=== PATIENT | female | born 1995 | race Caucasian/White ===

== ENCOUNTER 2023-11-14 13:44 | Emergency (ER) | payer OTHER, SELFPAY ==
[2023-11-14 13:45] VITALS: BP 144/86
--- NOTE | 2023-11-14 13:59 | ED.GENMED ---
History of Present Illness
General
Chief Complaint: Problems
Time Seen by Provider: 11/14/23 13:59
History of Present Illness
History of Present Illness:
TIME OF INITIAL ENCOUNTER: 2 PM
HPI: The patient just found out she was and has been having some cramping and light spotting. FDLMP was 10/08/23 but did have some vaginal bleeding about 8 days later. [facility] her here for further
evaluation. She has some lower abdominal discomfort slightly more on the left side. She states her first appointment with [facility] is in December.
EXAM:
GENERAL: Well appearing in no distress
HEENT: Moist oral mucosa
CARDIOVASCULAR: No murmurs, normal heart rate, regular rhythm, No chest wall tenderness
PULMONARY: No respiratory distress, breath sounds are clear and equal
ABDOMEN: Soft with no peritoneal signs, minimal if any left greater than right lower tenderness
NEUROLOGIC: Excellent strength all extremities, no coordination deficits
PSYCHIATRIC: Appropriate mental status, normal insight and judgement
EXTREMITIES: Nontender, no edema, moves all extremities equally
SKIN: No rash, no lesions
NUMBER AND COMPLEXITY OF PROBLEMS ADDRESSED AT THE ENCOUNTER
� Chronic conditions affecting care: No significant past medical history however she states she has had abortions in the past
� Acute Exacerbation and/or Progression of Chronic Illness: This is an acute problem
� Differential Diagnosis includes: Early , ectopic , miscarriage
AMOUNT AND/OR COMPLEXITY OF DATA TO BE REVIEWED AND ANALYZED
� I performed an independent evaluation of and my interpretation is:
EKG:
CT:
X-rays:
Laboratory Studies: hCG quant 153, hemoglobin and white count normal
Other: Ultrasound imaging reviewed�questionable gestational sac/ pole in the uterus
� Review of other/old records: I reviewed records, the patient has had adenotonsillectomy in 2016
� Clinical information was obtained by an independent historian: None needed
� Prescriptions/Medications Considered but not given:
� Further testing considered but not performed:
RISK OF COMPLICATIONS AND/OR MORBIDITY OR MORTALITY OF PATIENT MANAGEMENT
� Social determinants of health affecting care: Lives at home
� Discussion with other providers: Discussed case with Dr. Mccartney with close outpatient follow-up
� Escalation of care including admission/observation vs risk of discharge considered: No indication for admission to the hospital at this time however the patient will require close outpatient follow-up
ANY OTHER UPDATES:
Past History
Past History
ED Past Medical History: None
ED Past Surgical History: Tonsilectomy (10/25/2015)
Social History
Tobacco: Non-smoker
Personal: Single
Living: with family
Employment: Student
Family History
Family History: Diabetes and Hypertension
Phy Exam
Physical Exam
Physical Exam:
See HPI
Course
Orders/Labs/Results
Orders:
Orders
11/14/23 13:56
Type+Screen Urgent
Complete Blood Count/With Diff Urgent
Comprehensive Metabolic Panel Urgent
HCG, Beta Quantitative [Beta HCG Quantitative] Urgent
Is this a screen?: No
Urinalysis Reflex To Culture Urgent
Date Specimen was Collected: 11/14/23
Time Specimen was Collected: 13:49
Urine Microscopic Reflex Cult Urgent
11/14/23 14:00
US W Transvaginal Urgent
Reason For Exam: early bleeding
11/14/23 16:14
ABO2 Urgent
BBK Wristband Number:
Associate notified that ABO2 has been ordered: [id number]
Date: 11/14/23
Time: 14:09
Pacu Nurse ID: [id number]
Abnormal Lab Results
11/14/23
13:56
RDW 11.2 L %
(11.5-14.5)
Absolute Monos (auto) 0.8 H 10^3/uL
(0.1-0.6)
Urine Ketones Trace A
(Negative)
Ur Occult Blood Reflex 2+ A
(Negative)
Urine RBC 3-6 A /HPF
(0-2)
11/14/23 13:56
11/14/23 13:56
Vital Signs
Initial and Last Documented VS:
Initial Vital Signs
Temp Pulse Resp BP Pulse Ox
98.0 F 74 16 144/86 98
11/14/23 13:45 11/14/23 13:45 11/14/23 13:45 11/14/23 13:45 11/14/23 13:45
Last Documented Vital Signs
Temp Pulse Resp BP Pulse Ox
98.0 F 77 16 120/77 98
11/14/23 13:45 11/14/23 16:20 11/14/23 16:20 11/14/23 16:20 11/14/23 16:20
Information
Weeks gestation: Weeks:
Location: Location:
*Critical Care Note
Total Time (30-74mins, 75-104mins- exclusive of procedures): Not Applicable
ED Attending Note
-
Portions of this chart may have been created with voice recognition software.� Occasional wrong word or��sound alike� substitutions may have occurred due to the inherent limitations of voice recognition software.
Discharge Plan
Departure
Patient Disposition: Home (Routine Discharge)
Date of Disposition: 11/14/23
Time of Disposition: 16:59
Patient with high blood pressure during this ER visit?: Yes
Discharge Problem:
Bleeding in early
Instructions: Bleeding in Early (DC)
Referrals:
Janet Whelan DO [Active] - Tomorrow
Romana Arzola PA [Family Provider] -
Activity Restrictions/Additional Instructions:
The ultrasound suggest a small gestational sac in the uterus with an ill-defined fetus. hCG level is only 153. It is very important that you have repeat testing to further determine what is going on. I notified Dr. Whelan, with [facility],
call their office tomorrow mony 'they will likely set up hCG quant for Sunday and see what it does'. Dr. Whelan also had indicated that she will pass on your information to the triage nurse tomorrow morning as well. Your blood type is A+.
Interventions
Interventions:
*Risk Screen - Suicide Last Done: 11/14/23 13:45
*General Assessment Last Done: 11/14/23 15:06
*Neglect/Abuse Screening Last Done: 11/14/23 13:45
*ED COVID-19 Vaccine History Last Done: 11/14/23 15:06
*Nursing Disposition Last Done: 11/14/23 17:01
ED-Female Genitourinary Assessment Last Done: 11/14/23 15:06
Discharge Date and Time
Discharge Date/Time: 11/14/23 17:15
Print Language: KINYARWANDA
[2023-11-14 14:08] LABS: % Basophils 0.5 % (0-2); % Eosinophils 0.9 % (0-6); % Immature Granulocytes 0.3 % (0-0.5); % Lymphocytes 26.9 % (20.5-51.1); % Monocytes 8.5 % (1.7-9.3); % Neutrophils 62.9 % (42.2-75.2); Absolute Basophils 0.1 10^3/uL (0-0.2); Absolute Eosinophils 0.1 10^3/uL (0-0.7); Absolute Lymphocytes 2.7 10^3/uL (1.2-3.4); Absolute Monocytes 0.8 10^3/uL (0.1-0.6); Absolute Neutrophils 6.2 10^3/uL (1.4-6.5); Hematocrit 39.7 % (37.0-47.0); Hemoglobin 13.7 g/dL (12.0-16.0); Mean Corp Hgb Conc. 34.5 g/dL (33.0-37.0); Mean Corpuscular Hgb 30.3 pg (27.0-31.0); Mean Corpuscular Volume 87.8 fL (81.0-99.0); Mean Platelet Volume 9.6 fL (7.4-10.4); Nucleated Red Blood Cells % 0 %; Platelet Count 275 10^3/uL (130-400); Red Blood Cell Count 4.52 10^6/uL (4.20-5.40); Red Cell Dist. Width 11.2 % (11.5-14.5); Urine Albumin Negative (Neg - Trace); Urine Bilirubin Negative (Negative); Urine Character Clear (Clear); Urine Color Yellow; Urine Glucose Negative (Negative); Urine Ketone Trace (Negative); Urine Leukocyte Negative (Negative); Urine Nitrite Negative (Negative); Urine Occult Blood 2+ (Negative); Urine Urobilinogen Negative (Neg - 1+); White Blood Cell Count 9.9 10^3/uL (4.8-10.8)
[2023-11-14 14:23] LABS: ALT (SGPT) 17 U/L (0-35); AST (SGOT) 22 U/L (14-36); Albumin 4.7 g/dl (3.5-5.0); Alkaline Phosphatase 50 U/L (38-126); Blood Urea Nitrogen 17 mg/dl (7-17); Calcium 9.5 mg/dl (8.4-10.2); Carbon Dioxide 24 mmol/L (22-30); Chloride 101 mmol/L (98-107); Glucose 87 mg/dl (70-99); Sodium 138 mmol/L (135-145); Total Bilirubin 0.3 mg/dl (0.2-1.3); Total Protein 7.2 g/dl (6.3-8.2); eGFR > 60.00
[2023-11-14 14:39] LABS: Beta HCG Quantitative 153.34 mIU/ml
[2023-11-14 14:47] LABS: Urine Squamous Cell >30 /LPF (Few)
[2023-11-14 14:48] LABS: Urine Amorphous Seen; Urine White Cell 0-2 /HPF (0-5)
[2023-11-14 16:20] VITALS: BP 120/77
== END 2023-11-14 17:15 | disposition home or self-care (01) ==
LOC: EMR 13:44
PROVIDERS: Emergency Medicine; EMERGENCY PHYSICIAN Emergency Medicine; FAMILY PHYSICIAN Family Medicine
DX: O20.9 Hemorrhage in early pregnancy, unspecified (principal); R10.9 Unspecified abdominal pain; R03.0 Elevated blood-pressure reading, without diagnosis of hypertension; Z88.1 Allergy status to other antibiotic agents; Z91.040 Latex allergy status
CPT/HCPCS: 99284; 76801; 76817; 80053; 81003; 81015; 84702; 85025; 86850; 86900; 86901

== ENCOUNTER → 2023-11-16 14:26 | Outpatient (REF) | payer OTHER, SELFPAY ==
[2023-11-16 16:27] LABS: Beta HCG Quantitative 493.69 mIU/ml
== END ==
LOC: REG 14:26
PROVIDERS: ATTENDING PHYSICIAN Obstetrics & Gynecology; FAMILY PHYSICIAN Family Medicine
DX: Z34.90 Encounter for supervision of normal pregnancy, unspecified, unspecified trimester (principal)
CPT/HCPCS: 36415; 84702

== ENCOUNTER → 2024-01-14 14:43 | Outpatient (REF) | payer OTHER, SELFPAY | LOC: PNTC 14:43 | PROVIDERS: ATTENDING PHYSICIAN Obstetrics & Gynecology | DX: Z36.0 Encounter for antenatal screening for chromosomal anomalies (principal); Z36.82 Encounter for antenatal screening for nuchal translucency | CPT/HCPCS: 36415; 76801; 76813 ==

== ENCOUNTER → 2024-03-10 15:47 | Outpatient (REF) | payer OTHER, SELFPAY | LOC: PNTC 15:47 | PROVIDERS: ATTENDING PHYSICIAN Obstetrics & Gynecology | DX: Z36.0 Encounter for antenatal screening for chromosomal anomalies (principal) | CPT/HCPCS: 76805 ==

== ENCOUNTER 2024-07-21 14:15 | Inpatient (IN) | payer OTHER, SELFPAY ==
[2024-07-21 14:40] VITALS: BP 123/73; BMI 36.1
[2024-07-21] MEDS: LR 1000 IV ×2 (15:15→15:45)
[2024-07-21] MEDS: FENTANYL/BUPIVACAINE 100 EPIDURAL (15:34)
[2024-07-21] MEDS: SUBLIMAZE 100 MCG EPIDURAL (15:34)
[2024-07-21 16:41] LABS: Hematocrit 32.7 % (37.0-47.0); Hemoglobin 10.9 g/dL (12.0-16.0); Mean Corp Hgb Conc. 33.3 g/dL (33.0-37.0); Mean Corpuscular Hgb 28.5 pg (27.0-31.0); Mean Corpuscular Volume 85.6 fL (81.0-99.0); Mean Platelet Volume 10.2 fL (7.4-10.4); Platelet Count 242 10^3/uL (130-400); Red Blood Cell Count 3.82 10^6/uL (4.20-5.40); Red Cell Dist. Width 13.3 % (11.5-14.5); White Blood Cell Count 20.7 10^3/uL (4.8-10.8)
[2024-07-21 17:21] LABS: Segmented Neutrophils 86 % (42-75)
[2024-07-21 17:27] LABS: Band Neutrophils 1 % (0-3); Eosinophils 1 % (0-6); Lymphocytes 7 % (20-51); Monocytes 5 % (2-9); Myelocytes 1 % (-); Platelets Checked Yes
[2024-07-21 17:28] LABS: Anisocytosis Slight; Normal RBC Morphology No
[2024-07-21 17:30] LABS: Hypochromasia 1+; Total Cells Counted 100
[2024-07-21] MEDS: PITOCIN 30 UNITS/NSS 500 ML IV ×2 (19:30→20:13)
[2024-07-21 20:06] LABS: % Basophils 0.2 % (0-2); % Immature Granulocytes 0.6 % (0-0.5); % Lymphocytes 4.4 % (20.5-51.1); % Monocytes 5.2 % (1.7-9.3); % Neutrophils 89.6 % (42.2-75.2); Absolute Immature Granulocytes 0.1 10^3/uL (0-0.05); Absolute Lymphocytes 0.9 10^3/uL (1.2-3.4); Absolute Monocytes 1.1 10^3/uL (0.1-0.6); Absolute Neutrophils 18.7 10^3/uL (1.4-6.5); Hemoglobin 10.8 g/dL (12.0-16.0); Mean Corp Hgb Conc. 33.8 g/dL (33.0-37.0); Mean Corpuscular Hgb 28.7 pg (27.0-31.0); Mean Corpuscular Volume 85.1 fL (81.0-99.0); Mean Platelet Volume 10.1 fL (7.4-10.4); Nucleated Red Blood Cells % 0 %; Platelet Count 240 10^3/uL (130-400); Red Blood Cell Count 3.76 10^6/uL (4.20-5.40); Red Cell Dist. Width 13.3 % (11.5-14.5); White Blood Cell Count 20.9 10^3/uL (4.8-10.8)
[2024-07-22] MEDS: SENOKOT-S 1 TABLET PO (09:39)
--- NOTE | 2024-07-22 12:01 | PTCARENOTE ---
Home Medications: Per admission L&D nurse Xochitl Burnett RN, acted as coroner's juror and documented admission home medication list 'no current home medications' per verbal report from Xochitl Burnett RN.
[2024-07-22 14:39] LABS: Syphilis/T. pallidum Ab Reflex Negative (Negative)
--- NOTE | 2024-07-23 04:20 | DOWNTIME ---
Addendum entered and electronically signed by Lis Lira RN 07/23/24 14:05:
Correction: Downtime was 07/23/2024 from 0100 to 07/23/2024 at 0415
Original Note:
There was a [employer] Downtime on 07/22/2024 from 0100 to 07/23/2024 at 0415. Downtime documentation of patient's care, including medication administrations, has been reconciled in the electronic record per guidelines. Refer to the
patient's paper chart under the miscellaneous tab to see printed paper medication records and downtime forms.
[2024-07-23] MEDS: SENOKOT-S 1 TABLET PO (08:26)
== END 2024-07-23 11:27 | disposition home or self-care (01) | DRG 807 ==
LOC: LDRP 14:15
PROVIDERS: ADMITTING PHYSICIAN Advanced Practice Midwife
PROC: 10E0XZZ Delivery of Products of Conception, External Approach (ICD-10-PCS; 2024-07-21)
PROC: 0HQ9XZZ Repair Perineum Skin, External Approach (ICD-10-PCS; 2024-07-21)
DX: O70.0 First degree perineal laceration during delivery (principal); Z37.0 Single live birth; Z3A.39 39 weeks gestation of pregnancy
CPT/HCPCS: 85025; 86780; 86850; 86900; 86901; 87070